=== PATIENT | male | born 1990 | race African-American/Black ===

== ENCOUNTER 2020-07-01 10:15 | Emergency (ER) | payer OTHER ==
[~2020-07-01] VITALS: Ht 175.3 cm; Wt 80.0 kg
[2020-07-01] MEDS ORDERED: IBUPROFEN 600 MG TABLET PO ONE (10:30)
[2020-07-01 11:04] VITALS: BP 127/71
== END 2020-07-01 11:11 | disposition home or self-care (01) ==
LOC: EMS 10:20
DX: S93.401A Sprain of unspecified ligament of right ankle, initial encounter (principal); X58.XXXA Exposure to other specified factors, initial encounter; Y93.89 Activity, other specified; Y92.89 Other specified places as the place of occurrence of the external cause; Y99.8 Other external cause status

== ENCOUNTER 2020-11-02 10:02 | Emergency (ER) | payer OTHER ==
[~2020-11-02] VITALS: Ht 188 cm; Wt 79.5 kg
[2020-11-02 10:06] VITALS: BP 133/87
== END 2020-11-02 11:06 | disposition left against medical advice (07) ==
LOC: EMS 10:06
DX: R22.2 Localized swelling, mass and lump, trunk (principal); Z53.21 Procedure and treatment not carried out due to patient leaving prior to being seen by health care provider